=== PATIENT | female | born 1980 | race American Indian/Alaskan Native ===

== ENCOUNTER 2016-11-15 00:20 | Emergency (ER) | payer MEDICAID ==
[2016-11-15 00:33] VITALS: RESP 18
--- NOTE | 2016-11-15 00:43 | ED PDOC ---
Arrival/HPI - General Chief Complaint: GI Problem Time Seen by Provider: 11/15/16 00:29 Historian: Patient - History of Present Illness Narrative History of Present Illness (Text): 11/15/16 00:33 Cathleen Shah is a 35 year old female, P:1 delivered via , currently 33 weeks , who presents to the ED brought in by EMS complaining of lower abdominal discomfort with lower back pain for the past 2 hours. Patient reports associated headache, nausea, vomiting, and mild diarrhea. Patient denies any fever, chills, chest pain, shortness of breath, neck pain, dizziness, or any other complaints. Symptom Onset: Gradual Symptom Course: Unchanged Activities at Onset: Rest, Light Context: Home Past Medical History - Provider Review Nursing Documentation Reviewed: Yes - Psychiatric Hx Substance Use: No Family/Social History - Physician Review Nursing Documentation Reviewed: Yes Family/Social History: Unknown Family HX Smoking Status: Never Smoked Hx Alcohol Use: No Hx Substance Use: No Allergies/Home Meds Allergies/Adverse Reactions: Allergies No Known Allergies Allergy (Verified 11/15/16 03:01) Review of Systems - Physician Review All systems were reviewed & negative as marked: Yes - Review of Systems Constitutional: Normal. absent: Fevers Eyes: Normal ENT: Normal Respiratory: Normal. absent: SOB, Cough Cardiovascular: Normal. absent: Chest Pain Gastrointestinal: Abdominal Pain, Nausea, Vomiting Genitourinary Female: Normal. absent: Dysuria, Frequency, Hematuria, Urine Output Changes Musculoskeletal: Back Pain. absent: Neck Pain Skin: Normal. absent: Rash Neurological: Headache. absent: Dizziness Endocrine: Normal Hemo/Lymphatic: Normal Psychiatric: Normal Physical Exam Vital Signs Reviewed: Yes Vital Signs Temp Pulse Resp BP Pulse Ox 11/15/16 02:02 98.4 F 89 18 119/64 99 11/15/16 00:33 98.2 F 90 18 113/67 98 Temperature: Afebrile Blood Pressure: Normal Pulse: Regular Respiratory Rate: Normal Appearance: Positive for: Well-Appearing, Non-Toxic, Comfortable Pain Distress: None Mental Status: Positive for: Alert and Oriented X 3 - Systems Exam Head: Present: Atraumatic, Normocephalic Pupils: Present: PERRL Extroacular Muscles: Present: EOMI Conjunctiva: Present: Normal Mouth: Present: Moist Mucous Membranes Neck: Present: Normal Range of Motion Respiratory/Chest: Present: Clear to Auscultation, Good Air Exchange. No: Respiratory Distress, Accessory Muscle Use Cardiovascular: Present: Regular Rate and Rhythm, Normal S1, S2. No: Murmurs Abdomen: Present: Distention (Distention consistent with gestational age), Normal Bowel Sounds. No: Tenderness, Peritoneal Signs Back: Present: Normal Inspection Upper Extremity: Present: Normal Inspection. No: Cyanosis, Edema Lower Extremity: Present: Normal Inspection. No: Edema Neurological: Present: GCS=15, CN II-XII Intact, Speech Normal Skin: Present: Warm, Dry, Normal Color. No: Rashes Psychiatric: Present: Alert, Oriented x 3, Normal Insight, Normal Concentration Medical Decision Making ED Course and Treatment: 11/15/16 00:33 Impression: 35 year old female c/o lower abdominal discomfort, lower back pain, nausea, vomiting, and headache. Differential Diagnosis included but are not limited to: gastritis vs. early labor Plan: -- Labs -- IV fluids -- Zofran -- Reassess and disposition Progress Notes: 11/15/16 00:50 RN reports heartrate of 140 bpm. 11/15/16 01:39 Case discussed with KIMBERLY Diego stallion manager at [facility], who accepts pt on transfer. Transfer (Adult): Based upon the information available at the time of transfer, the medical benefits reasonably expected from the provision of medical treatment at [facility] outweigh the increased risk to the patient for transfer from this facility. I have described the inherent risks and benefits of the transfer to the patient, and patient agrees to transfer. I have spoken to KIMBERLY Diego, who has agreed to accept transfer of the patient and provide further medical treatment at the receiving facility. At the time of transfer, copies of all medical records sent which related to the emergency condition for which the individual presented. These records include observations of signs or symptoms, preliminary clinical impression, treatment provided, results of any completed test and an informed written consent to the transfer. - Lab Interpretations Lab Results: 11/15/16 01:10 11/15/16 01:10 Lab Results 11/15/16 01:10: Sodium 132, Potassium 3.9, Chloride 105, Carbon Dioxide 22, Anion Gap 9 L, BUN 7, Creatinine 0.6, Est GFR ( Amer) > 60, Est GFR (Non- Af Amer) > 60, Random Glucose 114 H, Calcium 9.0, Total Bilirubin 0.3, AST 25, ALT 35, Alkaline Phosphatase 100, Total Protein 6.3, Albumin 3.2, Globulin 3.1, Albumin/Globulin Ratio 1.0 L 11/15/16 01:10: WBC 9.5, RBC 3.41 L, Hgb 8.7 L, Hct 27.6 L, MCV 80.9, MCH 25.5, MCHC 31.5, RDW 15.4 H, Plt Count 213, MPV 10.0 I have reviewed the lab results: Yes - Medication Orders Current Medication Orders: Discontinued Medications Sodium Chloride (Sodium Chloride 0.9%) 1,000 mls @ 100 mls/hr IV .Q10H POOL Last Admin: 11/15/16 02:02 Dose: 100 mls/hr Ondansetron HCl (Zofran Inj) 4 mg IVP ONCE ONE Stop: 11/15/16 00:53 Last Admin: 11/15/16 01:18 Dose: 4 mg - Scribe Statement The provider has reviewed the documentation as recorded by the Comfort Blackmon Provider Scribe Attestation: All medical record entries made by the Comfort were at my direction and personally dictated by me. I have reviewed the chart and agree that the record accurately reflects my personal performance of the history, physical exam, medical decision making, and the department course for this patient. I have also personally directed, reviewed, and agree with the discharge instructions and disposition. Disposition/Present on Arrival - Present on Arrival Any Indicators Present on Arrival: No History of DVT/PE: No History of Uncontrolled Diabetes: No Urinary Catheter: No History of Decub. Ulcer: No History Surgical Site Infection Following: None - Disposition Have Diagnosis and Disposition been Completed?: Yes Diagnosis: Abdominal pain in Disposition: Transfer [facility] Disposition Time: 02:10 Condition: GOOD
[2016-11-15] MEDS: Sodium Chloride 0.9% 1,000 ML IV SCH ×2 (01:18→02:02)
[2016-11-15 01:24] LABS: HEMATOCRIT 27.6 % (36.0-48.0); MEAN CELL VOLUME 80.9 fL (80.0-105.0); MEAN CORPUSCULAR HEMOGLOBIN 25.5 pg (25.0-35.0); MEAN CORPUSCULAR HGB CONC 31.5 g/dl (31.0-37.0); RED CELL DISTRIBUTION WIDTH 15.4 % (11.5-14.5); WHITE BLOOD COUNT 9.5 10^3/ul (4.5-11.0)
[2016-11-15 01:52] LABS: ALKALINE PHOSPHATASE 100 U/L (38-133); ALT/SGPT 35 U/L (7-56); AST/SGOT 25 U/L (15-39); BILIRUBIN,TOTAL 0.3 mg/dL (0.2-1.3); BLOOD UREA NITROGEN 7 mg/dL (7-21); CARBON DIOXIDE 22 mmol/L (21-33); CHLORIDE 105 mmol/L (95-110); GFR AFRICAN-AMERICAN > 60; GLUCOSE,RANDOM 114 mg/dL (70-110); POTASSIUM 3.9 mmol/L (3.6-5.0); SODIUM 132 mmol/L (132-148); TOTAL PROTEIN 6.3 g/dL (5.8-8.3)
[2016-11-15 02:09] VITALS: BP 119/64; PULSE 89; TEMP 98.4; O2SAT 99
== END 2016-11-15 02:10 | disposition short-term general hospital (02) ==
LOC: ED 00:20
DX: O26.893 Other specified pregnancy related conditions, third trimester (principal); Z3A.33 33 weeks gestation of pregnancy; R10.30 Lower abdominal pain, unspecified
CPT/HCPCS: 80053; 85027; 96374; 99284; J2405; J7040